=== PATIENT | male | born 1975 | race Caucasian/White ===

== ENCOUNTER 2020-09-13 15:20 | Emergency (ER) | payer OTHER ==
[~2020-09-13] VITALS: Ht 177.8 cm; Wt 102.0 kg
[2020-09-13] MEDS ORDERED: aspirin 325mg tablet PO ONE (15:30)
[2020-09-13] MEDS ORDERED: amLODIPine 5mg tablet PO ONE (15:30)
[2020-09-13] MEDS ORDERED: hyDRALAzine 10mg tablet PO SCH (15:30)
[2020-09-13 15:50] LABS: BASOPHILS % (AUTO) 0.5 % (0-1); EOSINOPHILS % (AUTO) 0.6 % (0-6); HEMATOCRIT 49.5 % (42.0-52.0); HEMOGLOBIN 16.5 g/dl (14.0-17.9); LYMPHOCYTES # (AUTO) 1.6 X10'3 (1.1-4.8); LYMPHOCYTES % (AUTO) 23.2 % (21-51); MEAN CORPUSCULAR HEMOGLOBIN 33.2 PG (27.0-31.0); MEAN CORPUSCULAR HGB CONC 33.3 g/dL (33.0-36.5); MEAN CORPUSCULAR VOLUME 99.8 FL (78-98); MEAN PLATELET VOLUME 9.9 FL (7.4-10.4); MONOCYTES # (AUTO) 0.5 X10'3 (0-0.9); MONOCYTES % (AUTO) 7.7 % (2-12); NEUTROPHILS # (AUTO) 4.5 X10'3 (1.8-7.7); PLATELET COUNT 136 X10'3 (140-440); RED BLOOD COUNT 4.95 X10'6 (4.70-6.10); RED CELL DISTRIBUTION WIDTH 14.8 % (11.5-14.5); WHITE BLOOD COUNT 6.7 X10'3 (4.5-11.0)
[2020-09-13 16:11] LABS: ALANINE AMINOTRANSFERASE 144 U/L (12-78); ALBUMIN 4.2 G/DL (3.4-5.0); ALBUMIN/GLOBULIN RATIO 1.2 (1.1-1.5); ALKALINE PHOSPHATASE 104 IU/L (46-116); ANION GAP 12 (8-16); ASPARTATE AMINO TRANSFERASE 56 U/L (10-37); BILIRUBIN,TOTAL 0.7 MG/DL (0.1-1.0); BLOOD UREA NITROGEN 13 MG/DL (7-18); BUN/CREATININE RATIO 16.9 (5.4-32.0); CALCIUM 9.5 MG/DL (8.5-10.1); CHLORIDE 103 MMOL/L (99-107); CREATININE 0.77 MG/DL (0.60-1.10); GLUCOSE 248 MG/DL (70-104); POTASSIUM 3.8 MMOL/L (3.5-5.1); SODIUM 140 MMOL/L (135-145); TOTAL CARBON DIOXIDE 25.2 MMOL/L (24-32); TOTAL PROTEIN 7.8 G/DL (6.4-8.2); eGFR > 90 ML/MIN
[2020-09-13 17:00] VITALS: BP 158/116
== END 2020-09-13 17:04 | disposition home or self-care (01) ==
LOC: ER 15:20
DX: I10 Essential (primary) hypertension (principal); R73.9 Hyperglycemia, unspecified; G89.29 Other chronic pain; Z72.89 Other problems related to lifestyle
CPT/HCPCS: 36415; 80053; 85025; 93005; 99284